=== PATIENT | male | born 1970 | race Asian ===

== ENCOUNTER 2018-01-21 11:38 | Inpatient (IN) | payer BC ==
[~2018-01-21] VITALS: Ht 167.6 cm; Wt 67.7 kg
[2018-01-21] MEDS ORDERED: ONDANSETRON 2MG/ML, 2ML ONE (12:24)
[2018-01-21] MEDS ORDERED: HYDROmorphone 2 MG/ML, 1ML ONE (12:25)
[2018-01-21] MEDS ORDERED: ONDANSETRON 2MG/ML, 2ML IVPush ONE (12:30)
[2018-01-21] MEDS ORDERED: SODIUM CHLORIDE FLUSH 10ML SYR IVF ONE (12:30)
[2018-01-21] MEDS ORDERED: HYDROmorphone 2 MG/ML, 1ML IVPush PRN (12:30)
[2018-01-21 14:16] LABS: BASOPHILS # (AUTO) 0.02 x10^3/uL (0-0.1); BASOPHILS % (AUTO) 0 % (0-1); EOSINOPHILS # (AUTO) 0.03 x10^3/uL (0-0.4); EOSINOPHILS % (AUTO) 0 % (1-7); LYMPHOCYTES % (AUTO) 16 % (22-44); MD NO; MEAN CORPUSCULAR HGB CONC 34.6 g/dL (33.2-36.2); MEAN CORPUSCULAR VOLUME 86.8 fL (81-97); MEAN PLATELET VOLUME 8.1 fL (7.4-10.4); MONOCYTES # (AUTO) 0.31 x10^3/uL (0.2-0.8); MONOCYTES % (AUTO) 4 % (2-9); NEUTROPHILS # (AUTO) 5.92 x10^3/uL (1.8-6.8); NEUTROPHILS % (AUTO) 79 % (42-75); PLATELET COUNT 284 x10^3/uL (130-400); RED BLOOD COUNT 4.67 x10^6/uL (4.38-5.82); RED CELL DISTRIBUTION WIDTH 13.1 % (9.4-14.8)
[2018-01-21 14:24] LABS: ALBUMIN 4.3 g/dL (3.4-5.0); ANION GAP 10 mmol/L (5-15); CALCIUM 9.6 mg/dL (8.5-10.1); CHLORIDE 108 mmol/L (98-107); INTERNATIONAL NORMALIZED RATIO 0.97 (0.93-1.1); PROTHROMBIN TIME 10.1 Seconds (9.6-11.5)
[2018-01-21 14:28] LABS: ALANINE AMINOTRANSFERASE 68 U/L (12-78); ALKALINE PHOSPHATASE 86 U/L (45-117); BILIRUBIN,TOTAL 0.8 mg/dL (0.2-1.0); CREATININE 1.13 mg/dL (0.7-1.3); TOTAL PROTEIN 7.4 g/dL (6.4-8.2)
[2018-01-21] MEDS ORDERED: NS + 20MEQ KCL 1,000 ML IV SCH (16:04)
[2018-01-21] MEDS ORDERED: DEXTROSE 50%, 50ML SYRINGE IVPush PRN (16:30)
[2018-01-21] MEDS ORDERED: DOCUSATE 100 MG CAPSULE PO PRN (16:30)
[2018-01-21] MEDS ORDERED: ONDANSETRON 2MG/ML, 2ML IVPush PRN (16:30)
[2018-01-21] MEDS ORDERED: POLYETHYLENE GLYCOL 17 GM PACKET PO PRN (16:30)
[2018-01-21] MEDS ORDERED: GLUCAGON 1 MG IM PRN (16:30)
[2018-01-21] MEDS ORDERED: DEXTROSE 4 GM TAB.CHEW PO PRN (16:30)
[2018-01-21] MEDS ORDERED: OMNIPAQUE 350 MG/ML, 100ML BOTTLE ONE (16:47)
[2018-01-21] MEDS ORDERED: GADOBUTROL 15 MMOL/15 ML PFS ONE (18:49)
[2018-01-21] MEDS: SODIUM CHLORIDE FLUSH 10ML SYR IVF SCH (21:00)
[2018-01-21] MEDS: HYDROcodone/APAP 5/325 TABLET PO PRN (22:06)
[2018-01-21] MEDS: INSULIN LISPRO 100 UNITS/ML, PEN SQ-INSULIN SCH ×2 (22:39→22:43)
[2018-01-22 02:00] VITALS: BP 100/61
[2018-01-22 05:27] LABS: CHLORIDE 110 mmol/L (98-107)
[2018-01-22 05:31] LABS: ANION GAP 9 mmol/L (5-15); CALCIUM 8.8 mg/dL (8.5-10.1); CREATININE 1.04 mg/dL (0.7-1.3)
[2018-01-22] MEDS: INSULIN LISPRO 100 UNITS/ML, PEN SQ-INSULIN SCH ×4 (07:00→21:00)
[2018-01-22 07:37] VITALS: BP 118/78
[2018-01-22] MEDS: SODIUM CHLORIDE FLUSH 10ML SYR IVF SCH ×2 (07:59→21:00)
[2018-01-22] MEDS: SENNA/DOCUSATE TABLET PO SCH (07:59)
[2018-01-22] MEDS ORDERED: LIDOCAINE-MPF 1%, 5ML ONE (09:05)
[2018-01-22] MEDS ORDERED: MIDAZOLAM 1 MG/ML, 5ML ONE (10:00)
[2018-01-22] MEDS ORDERED: NALOXONE 1 MG/ML, 2ML ONE (10:00)
[2018-01-22] MEDS ORDERED: FLUMAZENIL 0.1 MG/1 ML, 5ML ONE (10:00)
[2018-01-22] MEDS ORDERED: FENTANYL PF 100 MCG/2ML ONE (10:00)
[2018-01-22 11:42] VITALS: BP 112/67
[2018-01-22 13:32] VITALS: BP 121/74
[2018-01-22 16:51] VITALS: BP 119/75
[2018-01-22 20:54] VITALS: BP 121/73
[2018-01-22] MEDS: HYDROcodone/APAP 5/325 TABLET PO PRN (23:00)
[2018-01-23 02:57] VITALS: BP 100/65
[2018-01-23] MEDS: INSULIN LISPRO 100 UNITS/ML, PEN SQ-INSULIN SCH ×4 (07:45→20:24)
[2018-01-23 08:30] VITALS: BP 123/78
[2018-01-23] MEDS: SODIUM CHLORIDE FLUSH 10ML SYR IVF SCH ×2 (09:00→20:25)
[2018-01-23] MEDS: SENNA/DOCUSATE TABLET PO SCH (09:00)
[2018-01-23 14:30] VITALS: BP 111/71
[2018-01-23 20:03] VITALS: BP 131/78
[2018-01-23] MEDS: HYDROcodone/APAP 5/325 TABLET PO PRN (22:41)
[2018-01-24 02:45] VITALS: BP 134/83
[2018-01-24] MEDS: INSULIN LISPRO 100 UNITS/ML, PEN SQ-INSULIN SCH ×4 (07:00→21:11)
[2018-01-24 08:00] VITALS: BP 116/77
[2018-01-24] MEDS: SENNA/DOCUSATE TABLET PO SCH (08:58)
[2018-01-24] MEDS: SODIUM CHLORIDE FLUSH 10ML SYR IVF SCH ×2 (08:58→22:39)
[2018-01-24] MEDS: HYDROcodone/APAP 5/325 TABLET PO PRN ×2 (13:27→22:38)
[2018-01-24 14:00] VITALS: BP 113/77
[2018-01-24] MEDS ORDERED: GADOBUTROL 7.5 MMOL/7.5 ML PFS ONE (15:11)
[2018-01-24 20:47] VITALS: BP 107/70
[2018-01-25 05:26] VITALS: BP 105/69
[2018-01-25 07:47] VITALS: BP 128/78
[2018-01-25] MEDS: SENNA/DOCUSATE TABLET PO SCH (08:11)
[2018-01-25] MEDS: INSULIN LISPRO 100 UNITS/ML, PEN SQ-INSULIN SCH ×4 (08:11→21:00)
[2018-01-25] MEDS: SODIUM CHLORIDE FLUSH 10ML SYR IVF SCH ×2 (08:12→20:42)
[2018-01-25] MEDS ORDERED: FENTANYL PF 100 MCG/2ML ONE ×3 (09:03→16:40)
[2018-01-25] MEDS ORDERED: LIDOCAINE-MPF 1%, 5ML ONE (09:03)
[2018-01-25] MEDS ORDERED: FLUMAZENIL 0.1 MG/1 ML, 5ML ONE (09:03)
[2018-01-25] MEDS ORDERED: MIDAZOLAM 1 MG/ML, 5ML ONE (09:03)
[2018-01-25] MEDS ORDERED: NALOXONE 1 MG/ML, 2ML ONE (09:03)
[2018-01-25] MEDS ORDERED: BUPIVACAINE/PF 0.5% ONE (11:53)
[2018-01-25] MEDS ORDERED: BACITRACIN 50,000 UNIT ONE (11:53)
[2018-01-25] MEDS ORDERED: EPINEPHRINE 1 MG/ML, 1ML ONE (11:53)
[2018-01-25] MEDS ORDERED: MULT-658 PO (12:06)
[2018-01-25] MEDS ORDERED: VITAMIN D PO (12:06)
[2018-01-25] MEDS ORDERED: NAPR220C2 PO (12:06)
[2018-01-25] MEDS ORDERED: MIDAZOLAM 1 MG/ML, 2ML ONE (12:19)
[2018-01-25] MEDS ORDERED: FENTANYL PF 250 MCG/5ML ONE ×2 (12:19→14:30)
[2018-01-25] MEDS ORDERED: DEXAMETHASONE 4 MG/ML, 1ML ONE ×3 (12:21→12:24)
[2018-01-25] MEDS ORDERED: LIDOCAINE-MPF 2% ,5ML ONE (12:21)
[2018-01-25] MEDS ORDERED: ROCURONIUM 10MG/ML,5ML ONE (12:24)
[2018-01-25] MEDS ORDERED: PROPOFOL 10 MG/ML, 20ML ONE (12:24)
[2018-01-25] MEDS ORDERED: SUCCINYLCHOLINE 20 MG/ML, 10ML ONE (12:24)
[2018-01-25] MEDS ORDERED: ALBUMIN HUMAN 5% 500 ML ONE (13:29)
[2018-01-25] MEDS ORDERED: GLYCOPYRROLATE 0.2MG/1ML, 5ML ONE (13:32)
[2018-01-25] MEDS ORDERED: NEOSTIGMINE 1 MG/ML, 10ML ONE (13:32)
[2018-01-25] MEDS ORDERED: MEPERIDINE/PF 25MG/0.5ML IVPush PRN (14:30)
[2018-01-25] MEDS ORDERED: MIDAZOLAM 1 MG/ML, 2ML IV PRN (14:30)
[2018-01-25] MEDS ORDERED: HYDROmorphone 1 MG/ML, 1ML IV PRN (14:30)
[2018-01-25] MEDS ORDERED: ALBUTEROL SULFATE 2.5 MG/3 ML NPPB PRN (14:30)
[2018-01-25] MEDS ORDERED: HALOPERIDOL 5 MG/ML IV PRN (14:30)
[2018-01-25] MEDS ORDERED: LORazepam 2 MG/ML, 1ML IVPush PRN (14:30)
[2018-01-25] MEDS ORDERED: PROMETHAZINE 12.5 MG SUPP PR PRN (14:30)
[2018-01-25] MEDS ORDERED: hydrALAzine 20 MG/ML, 1ML IV PRN (14:30)
[2018-01-25] MEDS ORDERED: OXYcodone 5 MG/5 ML ORAL.SOL UDC PO PRN (14:30)
[2018-01-25] MEDS ORDERED: ACETAMINOPHEN 325 MG TABLET PO PRN (14:30)
[2018-01-25] MEDS ORDERED: ONDANSETRON ODT 8 MG PO PRN (14:30)
[2018-01-25] MEDS ORDERED: PROMETHAZINE 25 MG/ML, 1ML IV PRN (14:30)
[2018-01-25] MEDS ORDERED: LABETALOL 5MG/ML, 20ML IV PRN ×2 (14:30→19:30)
[2018-01-25] MEDS ORDERED: ONDANSETRON 2MG/ML, 2ML IV PRN (14:30)
[2018-01-25] MEDS ORDERED: EPHEDRINE 50 MG/ML, 1ML IVPush PRN (14:30)
[2018-01-25] MEDS ORDERED: BACITRACIN OPHTH OINT 500U/GM, 3.5 GM ONE (15:42)
[2018-01-25] MEDS: FENTANYL PF 100 MCG/2ML IV PRN ×3 (16:40→17:10)
[2018-01-25] MEDS ORDERED: OXYcodone 5 MG/5 ML ORAL.SOL UDC ONE (16:40)
[2018-01-25] MEDS ORDERED: MORPHINE SULFATE 4 MG/ML, 1ML ONE (17:06)
[2018-01-25] MEDS: MORPHINE SULFATE 4 MG/ML, 1ML IVPush PRN ×2 (17:10→17:30)
[2018-01-25] MEDS ORDERED: ACETAMINOPHEN 650 MG/20.3 ML UDC ONE (17:17)
[2018-01-25] MEDS ORDERED: ACETAMINOPHEN 325 MG TABLET ONE (17:18)
[2018-01-25] MEDS ORDERED: ONDANSETRON 2MG/ML, 2ML ONE (17:34)
[2018-01-25] MEDS ORDERED: HALOPERIDOL 5 MG/ML ONE (17:52)
[2018-01-25 19:05] VITALS: BP 123/83
[2018-01-25] MEDS ORDERED: BISACODYL 10 MG SUPP PR PRN (19:30)
[2018-01-25] MEDS ORDERED: MAGNESIUM HYDROXIDE 8%, 30ML UDC PO PRN (19:30)
[2018-01-25] MEDS: SODIUM CHLORIDE 0.9% 1,000 ML IV SCH (19:30)
[2018-01-25] MEDS ORDERED: PROMETHAZINE 25 MG/ML, 1ML IM PRN (19:30)
[2018-01-25] MEDS ORDERED: METHOCARBAMOL 1,000 MG in DEXTROSE 5% 100 ML IV ONE (19:30)
[2018-01-25] MEDS: HYDROcodone/APAP 5/325 TABLET PO PRN (20:42)
[2018-01-25] MEDS: CEFAZOLIN PMX 1GM/50ML 50 ML IVPB SCH (21:00)
[2018-01-26 00:56] VITALS: BP 103/69
[2018-01-26] MEDS: HYDROcodone/APAP 5/325 TABLET PO PRN ×3 (01:58→22:13)
[2018-01-26] MEDS: METHOCARBAMOL 750 MG in DEXTROSE 5% 100 ML IV SCH ×3 (03:55→20:44)
[2018-01-26] MEDS: CEFAZOLIN PMX 1GM/50ML 50 ML IVPB SCH (05:03)
[2018-01-26] MEDS: SENNA/DOCUSATE TABLET PO SCH ×2 (07:55)
[2018-01-26] MEDS: INSULIN LISPRO 100 UNITS/ML, PEN SQ-INSULIN SCH ×4 (07:55→20:52)
[2018-01-26] MEDS: SODIUM CHLORIDE FLUSH 10ML SYR IVF SCH ×2 (07:55→19:19)
[2018-01-26 07:58] VITALS: BP 115/74
[2018-01-26] MEDS: ONDANSETRON 2MG/ML, 2ML IV PRN (10:17)
[2018-01-26] MEDS: SODIUM CHLORIDE 0.9% 1,000 ML IV SCH ×2 (13:06→19:19)
[2018-01-26 13:08] VITALS: BP 110/69
[2018-01-26] MEDS ORDERED: NEOSPORIN OINT, 15GM ONE (13:39)
[2018-01-26] MEDS ORDERED: PROPOFOL 10 MG/ML, 20ML ONE ×2 (14:46→16:17)
[2018-01-26] MEDS ORDERED: ROCURONIUM 10MG/ML,5ML ONE (14:46)
[2018-01-26] MEDS ORDERED: NEOSTIGMINE 1 MG/ML, 10ML ONE (16:17)
[2018-01-26] MEDS ORDERED: CEFAZOLIN 1,000 MG ONE (16:17)
[2018-01-26] MEDS ORDERED: GLYCOPYRROLATE 0.2MG/1ML, 5ML ONE (16:17)
[2018-01-26] MEDS ORDERED: ROCURONIUM 10 MG/ML,10ML ONE (16:17)
[2018-01-26] MEDS ORDERED: FENTANYL PF 250 MCG/5ML ONE (16:38)
[2018-01-26] MEDS ORDERED: MEPERIDINE/PF 50 MG/ML ONE (17:45)
[2018-01-26] MEDS ORDERED: OXYcodone 5 MG/5 ML ORAL.SOL UDC ONE (17:58)
[2018-01-26] MEDS ORDERED: ONDANSETRON 2MG/ML, 2ML IV PRN (18:00)
[2018-01-26] MEDS ORDERED: ACETAMINOPHEN 325 MG TABLET PO PRN (18:00)
[2018-01-26] MEDS ORDERED: hydrALAzine 20 MG/ML, 1ML IV PRN (18:00)
[2018-01-26] MEDS ORDERED: OXYcodone 5 MG/5 ML ORAL.SOL UDC PO PRN (18:00)
[2018-01-26] MEDS ORDERED: FENTANYL PF 100 MCG/2ML IV PRN (18:00)
[2018-01-26] MEDS ORDERED: PROMETHAZINE 25 MG/ML, 1ML IV PRN (18:00)
[2018-01-26] MEDS ORDERED: LABETALOL 5MG/ML, 20ML IV PRN (18:00)
[2018-01-26] MEDS ORDERED: ONDANSETRON ODT 8 MG PO PRN (18:00)
[2018-01-26] MEDS ORDERED: PROMETHAZINE 12.5 MG SUPP PR PRN (18:00)
[2018-01-26] MEDS ORDERED: MORPHINE SULFATE 4 MG/ML, 1ML IVPush PRN (18:00)
[2018-01-26] MEDS ORDERED: PROMETHAZINE 25 MG/ML, 1ML IM PRN ×2 (18:00)
[2018-01-26] MEDS ORDERED: MEPERIDINE/PF 25MG/0.5ML IVPush PRN (18:00)
[2018-01-26] MEDS ORDERED: PROMETHAZINE 25 MG SUPP PR PRN (18:00)
[2018-01-26] MEDS ORDERED: HYDROmorphone 2 MG/ML, 1ML ONE (18:03)
[2018-01-26] MEDS: HYDROmorphone 1 MG/ML, 1ML IV PRN ×2 (18:07→18:27)
[2018-01-26] MEDS ORDERED: ONDANSETRON 2MG/ML, 2ML ONE (18:29)
[2018-01-26 19:04] VITALS: BP 127/75
[2018-01-26] MEDS: morphine SULFATE 10 MG/ML, 1ML IVPush PRN (19:15)
[2018-01-27] MEDS: CEFAZOLIN PMX 1GM/50ML 50 ML IVPB SCH ×2 (00:20→07:50)
[2018-01-27] MEDS: morphine SULFATE 10 MG/ML, 1ML IVPush PRN ×2 (00:28→18:37)
[2018-01-27] MEDS: HYDROcodone/APAP 5/325 TABLET PO PRN ×3 (02:09→20:03)
[2018-01-27 03:57] VITALS: BP 123/72
[2018-01-27] MEDS: METHOCARBAMOL 750 MG in DEXTROSE 5% 100 ML IV SCH ×3 (04:29→20:16)
[2018-01-27 05:10] LABS: HEMOGLOBIN A1C 8.3 % (4.2-6.3)
[2018-01-27 07:04] VITALS: BP 117/74
[2018-01-27] MEDS: INSULIN LISPRO 100 UNITS/ML, PEN SQ-INSULIN SCH ×4 (07:50→20:08)
[2018-01-27] MEDS: SENNA/DOCUSATE TABLET PO SCH ×2 (09:00→09:24)
[2018-01-27] MEDS: GLIMEPIRIDE 1 MG TABLET PO SCH (09:19)
[2018-01-27] MEDS: ONDANSETRON 2MG/ML, 2ML IV PRN (09:19)
[2018-01-27] MEDS: SODIUM CHLORIDE FLUSH 10ML SYR IVF SCH ×2 (09:20→20:03)
[2018-01-27 12:39] VITALS: BP 143/80
[2018-01-27] MEDS: SODIUM CHLORIDE 0.9% 1,000 ML IV SCH (15:19)
[2018-01-27] MEDS: ACETAMINOPHEN 325 MG TABLET PO PRN (16:42)
[2018-01-27 18:42] VITALS: BP 115/67
[2018-01-28 02:16] VITALS: BP 119/83
[2018-01-28] MEDS: morphine SULFATE 10 MG/ML, 1ML IVPush PRN ×3 (04:37→16:21)
[2018-01-28] MEDS: METHOCARBAMOL 750 MG TABLET PO SCH ×3 (06:11→22:13)
[2018-01-28] MEDS: SODIUM CHLORIDE 0.9% 1,000 ML IV SCH ×2 (06:11→17:25)
[2018-01-28] MEDS: INSULIN LISPRO 100 UNITS/ML, PEN SQ-INSULIN SCH ×4 (07:00→20:51)
[2018-01-28 07:26] VITALS: BP 126/78
[2018-01-28 08:25] LABS: BASOPHILS # (AUTO) 0.01 x10^3/uL (0-0.1); BASOPHILS % (AUTO) 0 % (0-1); EOSINOPHILS # (AUTO) 0.04 x10^3/uL (0-0.4); EOSINOPHILS % (AUTO) 1 % (1-7); LYMPHOCYTES # (AUTO) 0.92 x10^3/uL (1-3.4); LYMPHOCYTES % (AUTO) 13 % (22-44); MD NO; MEAN CORPUSCULAR HEMOGLOBIN 29.3 pg (27.5-34.5); MEAN CORPUSCULAR HGB CONC 33.7 g/dL (33.2-36.2); MEAN CORPUSCULAR VOLUME 86.9 fL (81-97); MEAN PLATELET VOLUME 7.4 fL (7.4-10.4); MONOCYTES # (AUTO) 0.49 x10^3/uL (0.2-0.8); MONOCYTES % (AUTO) 7 % (2-9); NEUTROPHILS # (AUTO) 5.44 x10^3/uL (1.8-6.8); NEUTROPHILS % (AUTO) 79 % (42-75); PLATELET COUNT 246 x10^3/uL (130-400); RED BLOOD COUNT 3.54 x10^6/uL (4.38-5.82); RED CELL DISTRIBUTION WIDTH 13.1 % (9.4-14.8)
[2018-01-28 08:36] LABS: ALANINE AMINOTRANSFERASE 27 U/L (12-78); ALBUMIN 3.1 g/dL (3.4-5.0); ANION GAP 11 mmol/L (5-15); CALCIUM 8.8 mg/dL (8.5-10.1); CHLORIDE 105 mmol/L (98-107); CREATININE 0.88 mg/dL (0.7-1.3)
[2018-01-28 08:38] LABS: ALKALINE PHOSPHATASE 64 U/L (45-117); BILIRUBIN,TOTAL 0.8 mg/dL (0.2-1.0); TOTAL PROTEIN 6.1 g/dL (6.4-8.2)
[2018-01-28] MEDS: SENNA/DOCUSATE TABLET PO SCH ×2 (09:00→12:21)
[2018-01-28] MEDS ORDERED: LIDOCAINE-MPF 1%, 5ML ONE (09:23)
[2018-01-28] MEDS ORDERED: NALOXONE 1 MG/ML, 2ML ONE (09:51)
[2018-01-28] MEDS ORDERED: FLUMAZENIL 0.1 MG/1 ML, 5ML ONE (09:51)
[2018-01-28] MEDS ORDERED: FENTANYL PF 100 MCG/2ML ONE (09:51)
[2018-01-28] MEDS ORDERED: MIDAZOLAM 1 MG/ML, 5ML ONE (09:51)
[2018-01-28] MEDS: DEXAMETHASONE 4 MG TABLET PO SCH (12:20)
[2018-01-28] MEDS: GLIMEPIRIDE 1 MG TABLET PO SCH (12:20)
[2018-01-28] MEDS: SODIUM CHLORIDE FLUSH 10ML SYR IVF SCH ×2 (12:20→20:51)
[2018-01-28 14:17] VITALS: BP 127/80
[2018-01-28 19:01] VITALS: BP 136/78
[2018-01-28] MEDS: HYDROcodone/APAP 5/325 TABLET PO PRN (22:13)
[2018-01-29 02:28] VITALS: BP 119/76
[2018-01-29] MEDS: FAMOTIDINE 20 MG/2 ML IVPush SCH ×2 (03:23→20:49)
[2018-01-29] MEDS: METHOCARBAMOL 750 MG TABLET PO SCH ×3 (05:25→22:40)
[2018-01-29] MEDS: SODIUM CHLORIDE 0.9% 1,000 ML IV SCH ×2 (07:00→16:49)
[2018-01-29] MEDS: DEXAMETHASONE 4 MG TABLET PO SCH (07:56)
[2018-01-29] MEDS: SENNA/DOCUSATE TABLET PO SCH ×2 (07:56→09:00)
[2018-01-29] MEDS: SODIUM CHLORIDE FLUSH 10ML SYR IVF SCH ×2 (07:57→20:50)
[2018-01-29] MEDS: GLIMEPIRIDE 1 MG TABLET PO SCH (07:57)
[2018-01-29] MEDS: HYDROcodone/APAP 5/325 TABLET PO PRN ×3 (08:00→22:40)
[2018-01-29 08:10] VITALS: BP 126/76
[2018-01-29] MEDS: INSULIN LISPRO 100 UNITS/ML, PEN SQ-INSULIN SCH ×4 (08:13→21:59)
[2018-01-29] MEDS: INSULIN GLARGINE 100 UNITS/ML, PEN SQ-INSULIN SCH ×2 (10:42→21:59)
[2018-01-29 14:29] VITALS: BP 121/77
[2018-01-29 20:41] VITALS: BP 120/74
[2018-01-30 02:30] VITALS: BP 116/77
[2018-01-30] MEDS: METHOCARBAMOL 750 MG TABLET PO SCH ×3 (06:20→22:09)
[2018-01-30] MEDS: HYDROcodone/APAP 5/325 TABLET PO PRN ×2 (06:20→22:09)
[2018-01-30] MEDS: INSULIN LISPRO 100 UNITS/ML, PEN SQ-INSULIN SCH ×4 (07:00→21:36)
[2018-01-30] MEDS: GLIMEPIRIDE 1 MG TABLET PO SCH (07:43)
[2018-01-30] MEDS: SODIUM CHLORIDE 0.9% 1,000 ML IV SCH ×2 (07:48→21:34)
[2018-01-30 08:39] VITALS: BP 116/73
[2018-01-30] MEDS: SENNA/DOCUSATE TABLET PO SCH ×2 (09:00→09:04)
[2018-01-30] MEDS: FAMOTIDINE 20 MG/2 ML IVPush SCH ×2 (09:03→21:35)
[2018-01-30] MEDS: DEXAMETHASONE 4 MG TABLET PO SCH (09:04)
[2018-01-30] MEDS: SODIUM CHLORIDE FLUSH 10ML SYR IVF SCH ×2 (09:04→21:35)
[2018-01-30 13:52] VITALS: BP 108/69
[2018-01-30 19:04] VITALS: BP 113/70
[2018-01-30] MEDS: INSULIN GLARGINE 100 UNITS/ML, PEN SQ-INSULIN SCH (21:36)
[2018-01-31 03:30] VITALS: BP 103/66
[2018-01-31 05:48] LABS: BASOPHILS # (AUTO) 0.02 x10^3/uL (0-0.1); BASOPHILS % (AUTO) 0 % (0-1); EOSINOPHILS % (AUTO) 0 % (1-7); LYMPHOCYTES % (AUTO) 16 % (22-44); MD NO; MEAN CORPUSCULAR HEMOGLOBIN 29.9 pg (27.5-34.5); MEAN CORPUSCULAR HGB CONC 34.5 g/dL (33.2-36.2); MEAN CORPUSCULAR VOLUME 86.7 fL (81-97); MEAN PLATELET VOLUME 8.1 fL (7.4-10.4); MONOCYTES # (AUTO) 0.66 x10^3/uL (0.2-0.8); MONOCYTES % (AUTO) 8 % (2-9); NEUTROPHILS # (AUTO) 6.45 x10^3/uL (1.8-6.8); NEUTROPHILS % (AUTO) 76 % (42-75); PLATELET COUNT 334 x10^3/uL (130-400); RED BLOOD COUNT 3.35 x10^6/uL (4.38-5.82); RED CELL DISTRIBUTION WIDTH 13.1 % (9.4-14.8)
[2018-01-31] MEDS: HYDROcodone/APAP 5/325 TABLET PO PRN ×3 (06:40→21:25)
[2018-01-31] MEDS: METHOCARBAMOL 750 MG TABLET PO SCH ×3 (06:40→21:26)
[2018-01-31 06:44] VITALS: BP 103/63
[2018-01-31] MEDS: DEXAMETHASONE 4 MG TABLET PO SCH (07:53)
[2018-01-31] MEDS: GLIMEPIRIDE 1 MG TABLET PO SCH (07:53)
[2018-01-31] MEDS: FAMOTIDINE 20 MG/2 ML IVPush SCH ×2 (07:53→21:26)
[2018-01-31] MEDS: SENNA/DOCUSATE TABLET PO SCH ×2 (07:53→07:55)
[2018-01-31] MEDS: INSULIN LISPRO 100 UNITS/ML, PEN SQ-INSULIN SCH ×4 (07:54→21:25)
[2018-01-31] MEDS: SODIUM CHLORIDE FLUSH 10ML SYR IVF SCH ×2 (07:55→21:27)
[2018-01-31] MEDS: SODIUM CHLORIDE 0.9% 1,000 ML IV SCH (07:55)
[2018-01-31 14:47] VITALS: BP 119/73
[2018-01-31 19:08] VITALS: BP 121/73
[2018-01-31] MEDS: INSULIN GLARGINE 100 UNITS/ML, PEN SQ-INSULIN SCH (21:24)
[2018-02-01 03:30] VITALS: BP 108/72
[2018-02-01] MEDS: METHOCARBAMOL 750 MG TABLET PO SCH ×3 (06:09→21:46)
[2018-02-01 07:45] VITALS: BP 112/72
[2018-02-01] MEDS: INSULIN LISPRO 100 UNITS/ML, PEN SQ-INSULIN SCH ×4 (07:45→21:45)
[2018-02-01] MEDS: SENNA/DOCUSATE TABLET PO SCH ×2 (08:42→08:43)
[2018-02-01] MEDS: GLIMEPIRIDE 1 MG TABLET PO SCH (08:42)
[2018-02-01] MEDS: FAMOTIDINE 20 MG/2 ML IVPush SCH ×2 (08:42→20:06)
[2018-02-01] MEDS: SODIUM CHLORIDE FLUSH 10ML SYR IVF SCH ×2 (08:43→20:07)
[2018-02-01] MEDS ORDERED: GLIM1TAB PO (09:03)
[2018-02-01] MEDS ORDERED: HYDR-3240 PO (09:03)
[2018-02-01] MEDS ORDERED: CA C1TAB29 PO (09:03)
[2018-02-01] MEDS ORDERED: ACET325T14 PO (09:03)
[2018-02-01] MEDS ORDERED: ONDA4TAB13 SL ×2 (09:03→10:34)
[2018-02-01] MEDS ORDERED: TRAM50TA2 PO (09:03)
[2018-02-01] MEDS ORDERED: METH750T2 PO (09:03)
[2018-02-01] MEDS ORDERED: POLY17PO5 PO (09:03)
[2018-02-01] MEDS: HYDROcodone/APAP 5/325 TABLET PO PRN ×2 (10:24→21:46)
[2018-02-01 14:41] VITALS: BP 106/67
[2018-02-01 19:14] VITALS: BP 112/68
[2018-02-01] MEDS: morphine SULFATE 10 MG/ML, 1ML IVPush PRN (20:06)
[2018-02-02 03:00] VITALS: BP 105/68
[2018-02-02] MEDS: METHOCARBAMOL 750 MG TABLET PO SCH ×3 (06:26→21:38)
[2018-02-02 07:15] VITALS: BP 103/66
[2018-02-02] MEDS: INSULIN LISPRO 100 UNITS/ML, PEN SQ-INSULIN SCH ×4 (07:41→21:38)
[2018-02-02] MEDS: GLIMEPIRIDE 1 MG TABLET PO SCH (08:43)
[2018-02-02] MEDS: FAMOTIDINE 20 MG/2 ML IVPush SCH ×2 (08:43→21:38)
[2018-02-02] MEDS: SENNA/DOCUSATE TABLET PO SCH ×2 (08:43)
[2018-02-02] MEDS: HYDROcodone/APAP 5/325 TABLET PO PRN ×3 (08:43→21:49)
[2018-02-02] MEDS: SODIUM CHLORIDE FLUSH 10ML SYR IVF SCH ×2 (08:43→21:36)
[2018-02-02 13:50] VITALS: BP 94/64
[2018-02-02 20:28] VITALS: BP 110/69
[2018-02-02] MEDS ORDERED: ACETAMINOPHEN 500 MG TABLET PO ONE (21:00)
[2018-02-02 21:10] LABS: BASOPHILS # (AUTO) 0.02 x10^3/uL (0-0.1); BASOPHILS % (AUTO) 0 % (0-1); EOSINOPHILS # (AUTO) 0.05 x10^3/uL (0-0.4); EOSINOPHILS % (AUTO) 1 % (1-7); LYMPHOCYTES # (AUTO) 0.98 x10^3/uL (1-3.4); LYMPHOCYTES % (AUTO) 13 % (22-44); MD NO; MEAN CORPUSCULAR HEMOGLOBIN 29.4 pg (27.5-34.5); MEAN CORPUSCULAR HGB CONC 33.8 g/dL (33.2-36.2); MEAN CORPUSCULAR VOLUME 86.9 fL (81-97); MEAN PLATELET VOLUME 7.5 fL (7.4-10.4); MONOCYTES # (AUTO) 0.46 x10^3/uL (0.2-0.8); MONOCYTES % (AUTO) 6 % (2-9); NEUTROPHILS # (AUTO) 6.09 x10^3/uL (1.8-6.8); NEUTROPHILS % (AUTO) 80 % (42-75); PLATELET COUNT 396 x10^3/uL (130-400); RED BLOOD COUNT 3.36 x10^6/uL (4.38-5.82); RED CELL DISTRIBUTION WIDTH 13.5 % (9.4-14.8)
[2018-02-02 21:22] LABS: ALANINE AMINOTRANSFERASE 48 U/L (12-78); ALBUMIN 3.1 g/dL (3.4-5.0); ANION GAP 10 mmol/L (5-15); CALCIUM 7.7 mg/dL (8.5-10.1); CHLORIDE 107 mmol/L (98-107); CREATININE 0.88 mg/dL (0.7-1.3)
[2018-02-02 21:24] LABS: ALKALINE PHOSPHATASE 96 U/L (45-117); BILIRUBIN,TOTAL 0.8 mg/dL (0.2-1.0); TOTAL PROTEIN 6.1 g/dL (6.4-8.2)
[2018-02-02 21:57] LABS: MICROSCOPIC AUTO
[2018-02-03 01:39] VITALS: BP 107/69
[2018-02-03] MEDS: METHOCARBAMOL 750 MG TABLET PO SCH ×3 (05:45→22:17)
[2018-02-03 05:50] LABS: BASOPHILS # (AUTO) 0.02 x10^3/uL (0-0.1); BASOPHILS % (AUTO) 0 % (0-1); EOSINOPHILS # (AUTO) 0.11 x10^3/uL (0-0.4); EOSINOPHILS % (AUTO) 2 % (1-7); LYMPHOCYTES # (AUTO) 1.17 x10^3/uL (1-3.4); LYMPHOCYTES % (AUTO) 16 % (22-44); MD NO; MEAN CORPUSCULAR HGB CONC 34.3 g/dL (33.2-36.2); MEAN CORPUSCULAR VOLUME 87.3 fL (81-97); MEAN PLATELET VOLUME 7.6 fL (7.4-10.4); MONOCYTES % (AUTO) 7 % (2-9); NEUTROPHILS # (AUTO) 5.55 x10^3/uL (1.8-6.8); NEUTROPHILS % (AUTO) 76 % (42-75); PLATELET COUNT 365 x10^3/uL (130-400); RED BLOOD COUNT 3.43 x10^6/uL (4.38-5.82)
[2018-02-03 05:53] LABS: ANION GAP 8 mmol/L (5-15); CALCIUM 8.5 mg/dL (8.5-10.1); CHLORIDE 109 mmol/L (98-107)
[2018-02-03 05:56] LABS: CREATININE 0.82 mg/dL (0.7-1.3)
[2018-02-03 08:30] VITALS: BP 108/69
[2018-02-03] MEDS: INSULIN LISPRO 100 UNITS/ML, PEN SQ-INSULIN SCH ×4 (08:33→21:00)
[2018-02-03] MEDS: ACETAMINOPHEN 325 MG TABLET PO PRN (08:35)
[2018-02-03] MEDS: SODIUM CHLORIDE FLUSH 10ML SYR IVF SCH ×2 (08:36→21:06)
[2018-02-03] MEDS: GLIMEPIRIDE 1 MG TABLET PO SCH (08:36)
[2018-02-03] MEDS: SENNA/DOCUSATE TABLET PO SCH ×2 (08:36)
[2018-02-03] MEDS: FAMOTIDINE 20 MG/2 ML IVPush SCH ×2 (08:36→21:06)
[2018-02-03] MEDS ORDERED: SODIUM CHLORIDE 0.9% 1,000 ML IV SCH (09:00)
[2018-02-03] MEDS ORDERED: OMNIPAQUE 350 MG/ML, 100ML BOTTLE ONE (09:28)
[2018-02-03 13:24] VITALS: BP 99/62
[2018-02-03] MEDS: HYDROcodone/APAP 5/325 TABLET PO PRN (17:59)
[2018-02-03 18:46] VITALS: BP 111/75
[2018-02-04 01:03] VITALS: BP 105/68
[2018-02-04 04:50] LABS: BASOPHILS # (AUTO) 0.03 x10^3/uL (0-0.1); BASOPHILS % (AUTO) 1 % (0-1); EOSINOPHILS # (AUTO) 0.18 x10^3/uL (0-0.4); EOSINOPHILS % (AUTO) 3 % (1-7); LYMPHOCYTES # (AUTO) 1.31 x10^3/uL (1-3.4); LYMPHOCYTES % (AUTO) 18 % (22-44); MD NO; MEAN CORPUSCULAR HEMOGLOBIN 29.3 pg (27.5-34.5); MEAN CORPUSCULAR HGB CONC 33.6 g/dL (33.2-36.2); MEAN CORPUSCULAR VOLUME 87.3 fL (81-97); MEAN PLATELET VOLUME 7.4 fL (7.4-10.4); MONOCYTES # (AUTO) 0.59 x10^3/uL (0.2-0.8); MONOCYTES % (AUTO) 8 % (2-9); NEUTROPHILS # (AUTO) 5.07 x10^3/uL (1.8-6.8); NEUTROPHILS % (AUTO) 71 % (42-75); PLATELET COUNT 397 x10^3/uL (130-400); RED BLOOD COUNT 3.61 x10^6/uL (4.38-5.82); RED CELL DISTRIBUTION WIDTH 13.4 % (9.4-14.8)
[2018-02-04 05:03] LABS: ALANINE AMINOTRANSFERASE 49 U/L (12-78); ALBUMIN 3.4 g/dL (3.4-5.0); ANION GAP 7 mmol/L (5-15); CALCIUM 8.7 mg/dL (8.5-10.1); CHLORIDE 108 mmol/L (98-107); CREATININE 0.92 mg/dL (0.7-1.3)
[2018-02-04 05:05] LABS: ALKALINE PHOSPHATASE 90 U/L (45-117); BILIRUBIN,TOTAL 1.1 mg/dL (0.2-1.0); TOTAL PROTEIN 6.4 g/dL (6.4-8.2)
[2018-02-04] MEDS: METHOCARBAMOL 750 MG TABLET PO SCH (05:34)
[2018-02-04] MEDS: INSULIN LISPRO 100 UNITS/ML, PEN SQ-INSULIN SCH ×2 (07:15→11:18)
[2018-02-04 07:23] VITALS: BP 110/62
[2018-02-04] MEDS: SENNA/DOCUSATE TABLET PO SCH ×2 (09:36→09:39)
[2018-02-04] MEDS: GLIMEPIRIDE 1 MG TABLET PO SCH (09:38)
[2018-02-04] MEDS: FAMOTIDINE 20 MG/2 ML IVPush SCH (09:38)
[2018-02-04] MEDS: SODIUM CHLORIDE FLUSH 10ML SYR IVF SCH (09:39)
[2018-02-04] MEDS: HYDROcodone/APAP 5/325 TABLET PO PRN (11:22)
== END 2018-02-04 14:50 | disposition home or self-care (01) | DRG 29 ==
LOC: ED 12:43 → SUATTDRO 15:30 → EDIP 16:04 → 4NOR 19:00 → 3NW 01-22 15:59
PROVIDERS: ADMIT Family Medicine; ATTEND Family Medicine
PROC: 0RG20K1 Fusion of 2 or more Cervical Vertebral Joints with Nonautologous Tissue Substitute, Posterior Approach, Posterior Column, Open Approach (ICD-10-PCS; 2018-01-25)
PROC: 0QS604Z Reposition Right Upper Femur with Internal Fixation Device, Open Approach (ICD-10-PCS; 2018-01-25)
PROC: 00BW0ZZ Excision of Cervical Spinal Cord, Open Approach (ICD-10-PCS; 2018-01-25)
PROC: 03HY32Z Insertion of Monitoring Device into Upper Artery, Percutaneous Approach (ICD-10-PCS; 2018-01-25)
PROC: 4A133B1 Monitoring of Arterial Pressure, Peripheral, Percutaneous Approach (ICD-10-PCS; 2018-01-25)
PROC: 4A133J1 Monitoring of Arterial Pulse, Peripheral, Percutaneous Approach (ICD-10-PCS; 2018-01-25)
PROC: 07DS3ZX Extraction of Vertebral Bone Marrow, Percutaneous Approach, Diagnostic (ICD-10-PCS; 2018-01-26)
PROC: 0PB13ZX Excision of 1 to 2 Ribs, Percutaneous Approach, Diagnostic (ICD-10-PCS; 2018-01-26)
PROC: B3151ZZ Fluoroscopy of Bilateral Common Carotid Arteries using Low Osmolar Contrast (ICD-10-PCS; 2018-01-26)
PROC: B31G1ZZ Fluoroscopy of Bilateral Vertebral Arteries using Low Osmolar Contrast (ICD-10-PCS; 2018-01-26)
PROC: B3121ZZ Fluoroscopy of Left Subclavian Artery using Low Osmolar Contrast (ICD-10-PCS; 2018-01-26)
PROC: 07DR3ZX Extraction of Iliac Bone Marrow, Percutaneous Approach, Diagnostic (ICD-10-PCS; principal; 2018-01-28)
DX: G95.29 Other cord compression (principal); M84.451A Pathological fracture, right femur, initial encounter for fracture; C90.00 Multiple myeloma not having achieved remission; M50.30 Other cervical disc degeneration, unspecified cervical region; E11.9 Type 2 diabetes mellitus without complications; M48.04 Spinal stenosis, thoracic region; T38.0X5A Adverse effect of glucocorticoids and synthetic analogues, initial encounter; J45.909 Unspecified asthma, uncomplicated; M19.90 Unspecified osteoarthritis, unspecified site; K21.9 Gastro-esophageal reflux disease without esophagitis; Z98.1 Arthrodesis status; Z87.311 Personal history of (healed) other pathological fracture; Z83.3 Family history of diabetes mellitus; Z80.8 Family history of malignant neoplasm of other organs or systems; Z88.8 Allergy status to other drugs, medicaments and biological substances; Z91.030 Bee allergy status; X50.1XXA Overexertion from prolonged static or awkward postures, initial encounter; Y93.89 Activity, other specified; Y92.89 Other specified places as the place of occurrence of the external cause; Y99.8 Other external cause status
CPT/HCPCS: 36415; 72040; 73552; 75894; 75898; 76001; 84155; 84156; 99285; J3490; 20220; 36225; 38222; 61626; 70553; 71045; 71260; 71275; 72156; 72157; 72158; 74177; 77012; 80048; 80053; 81001; 82232; 82962; 83036; 83615; 83690; 83735; 83883; 84100; 84165; 84166; 85025; 85060; 85097; 85610; 85730; 86850; 86900; 86923; 87040; 88237; 88264; 88280; 88305; 88307; 88311; 88313; 88341; 88342; 88360; 93970; 96374; 96375; 99156; 99157; A9585; C1713; G0378; J0171; J0690; J1100; J1170; J2175; J2250; J2405; J2704; J2710; J3010; J3480; P9045; Q9967; C1751; C1760; C1762; C1769; C1894; J0330; J1630; J1815; J2270; J2310; J2800; J7030

== ENCOUNTER → 2018-03-06 | Outpatient (CLI) | payer BC ==
[~2018-03-06] MED LIST: ACET325T14 PO; CA C1TAB29 PO; GLIM1TAB PO; HYDR-3240 PO; METH750T2 PO; MULT-658 PO; NAPR220C2 PO; ONDA4TAB13 SL; POLY17PO5 PO; TRAM50TA2 PO; VITAMIN D PO
== END | disposition home or self-care (01) ==
LOC: RAD 14:15
PROVIDERS: ATTEND Physician Assistant Surgical
DX: M53.82 Other specified dorsopathies, cervical region (principal)
CPT/HCPCS: 72050

== ENCOUNTER → 2018-07-12 | Outpatient (CLI) | payer BC ==
[~2018-07-12] MED LIST changes: +GADOBUTROL 7.5 MMOL/7.5 ML PFS ONE
== END | disposition home or self-care (01) ==
LOC: CFH 12:39
PROVIDERS: ATTEND Internal Medicine Hematology & Oncology
DX: C90.00 Multiple myeloma not having achieved remission (principal)
CPT/HCPCS: 73223; A9585

== ENCOUNTER 2018-11-18 14:36 | Outpatient (CLI) | payer BC, OTHER ==
[~2018-11-18 14:36] MED LIST changes: +ACYC-114 PO; +ASPI-496 PO; +CHEMOTHERAPY IM; +DEXA4TAB PO; -GADOBUTROL 7.5 MMOL/7.5 ML PFS ONE; +LENA25CA PO
== END 2018-11-18 23:59 | disposition home or self-care (01) ==
LOC: CVU 14:36
PROVIDERS: ATTEND Specialist
DX: Z01.810 Encounter for preprocedural cardiovascular examination (principal); I35.1 Nonrheumatic aortic (valve) insufficiency; Z87.891 Personal history of nicotine dependence
CPT/HCPCS: 0399T; 93306

== ENCOUNTER 2019-11-14 12:27 | Outpatient (CLI) | payer OTHER, BC ==
[~2019-11-14 12:27] MED LIST changes: +LIDOCAINE-MPF 1%, 5ML ONE
== END 2019-11-14 23:59 | disposition home or self-care (01) ==
LOC: RAD 12:27
PROVIDERS: ATTEND Internal Medicine Hematology & Oncology
DX: C90.00 Multiple myeloma not having achieved remission (principal); C79.51 Secondary malignant neoplasm of bone
CPT/HCPCS: 10005; 76942; 88172; 88173; 88177